=== PATIENT | female | born 1995 | race Caucasian/White ===

== ENCOUNTER 2022-11-19 23:39 | Emergency (ER) | payer OTHER ==
[2022-11-19 23:44] VITALS: BP 145/82; PULSE 80; RESP 18; TEMP 98.2; BMI 38.2
[2022-11-20 01:21] LABS: BASO % 0.7 % (0-2.0); HEMATOCRIT 37.1 % (32.4-45.2); HEMOGLOBIN 12.1 GM/dL (10.7-15.3); LYMPH % 32.5 % (8-40); MCHC 32.8 g/dl (32.0-36.0); MEAN CELL VOLUME 82.3 fl (80-96); MEAN PLT VOLUME 7.6 fl (7.5-11.1); NEUT % 57.8 % (42.8-82.8); PLATELET COUNT 361 10^3/uL (134-434); RDW 14.7 % (11.6-15.6); WHITE BLOOD COUNT 6.1 K/mm3 (4.0-10.0)
[2022-11-20 01:35] LABS: INR 0.95 (0.83-1.09)
[2022-11-20 01:37] LABS: POTASSIUM 4.4 mmol/L (3.5-5.1)
[2022-11-20 01:38] LABS: ACTIVATED PTT 31.8 SECONDS (25.2-36.5)
[2022-11-20 01:39] LABS: ALBUMIN 3.2 g/dl (3.4-5.0); BLOOD UREA NITROGEN 11.8 mg/dL (7-18); CALCIUM 8.9 mg/dL (8.5-10.1)
[2022-11-20 01:44] LABS: BILIRUBIN,TOTAL 0.3 mg/dL (0.2-1)
[2022-11-20 01:48] LABS: CREATININE 0.6 mg/dL (0.55-1.3)
[2022-11-20] MEDS ORDERED: ACETAMINOPHEN 1000 MG/100 ML BAG IVPB ONE (01:51)
[2022-11-20 02:07] LABS: EPI CELLS 28 /uL (0-25.1); HYALINE CASTS 1 /uL (0-3.1); URINE APPEARANCE CLOUDY; URINE BACTERIA 306 /uL (0-1359); URINE BILIRUBIN NEGATIVE (NEGATIVE); URINE COLOR YELLOW; URINE GLUCOSE (UA) NEGATIVE (NEGATIVE); URINE KETONE TRACE (NEGATIVE); URINE LEUK ESTERASE 3+ (NEGATIVE); URINE NITRITE NEGATIVE (NEGATIVE); URINE PROTEIN 1+ (NEGATIVE); URINE RBC 50 /uL (0-23.9); URINE WBC 1466 /uL (0-25.8)
[2022-11-20] MEDS ORDERED: ACETAMINOPHEN INJECTION 100 ML IVPB ONE (02:29)
== END 2022-11-20 04:15 | disposition home or self-care (01) ==
LOC: JER 23:39
PROC: 3E033NZ Introduction of Analgesics, Hypnotics, Sedatives into Peripheral Vein, Percutaneous Approach (ICD-10-PCS; principal; 2022-11-20)
DX: O75.89 Other specified complications of labor and delivery (principal); O99.893 Other specified diseases and conditions complicating puerperium; R10.30 Lower abdominal pain, unspecified
CPT/HCPCS: 36415; 76830-TC; 80053; 81003; 83735; 84702; 85025; 85610; 85730; 86850; 86900; 86901; 99284-25